=== PATIENT | male | born 1945 ===

== ENCOUNTER 2022-03-22 16:12 | Emergency (ER) | payer OTHER ==
[~2022-03-22] VITALS: Ht 182.9 cm; Wt 86.2 kg
[2022-03-22] MEDS ORDERED: VALSARTAN40 MG (16:55)
[2022-03-22] MEDS ORDERED: GLIPIZIDE XL5 MG PO (16:55)
[2022-03-22] MEDS ORDERED: GLUMETZA1000 MG PO (16:55)
== END 2022-03-22 19:43 | disposition home or self-care (01) ==
LOC: ER 16:12
DX: I10 Essential (primary) hypertension (principal); E11.9 Type 2 diabetes mellitus without complications; Z79.84 Long term (current) use of oral hypoglycemic drugs